=== PATIENT | male | born 1965 | race Caucasian/White ===

== ENCOUNTER 2018-04-12 06:14 | Emergency (ER) | payer BC ==
[~2018-04-12] VITALS: Ht 170.2 cm; Wt 83.9 kg
[2018-04-12 06:20] VITALS: BP 153/70
--- NOTE | 2018-04-12 06:32 | PHYS DOC ---
Past History Past Medical History: No Pertinent History Past Surgical History: No Surgical History Additional Smoking Information: 1 PPD Alcohol Use: None Drug Use: None Adult General Chief Complaint Chief Complaint: DENTAL PROBLEM HPI HPI Gen.: Presenting with pain in his right upper tooth with swelling of the face and mild erythema of the face. This started today. His pain is a throbbing moderate nonradiating intermittent pain without alleviating factors. He was seen by a dentist locally recently and has another appointment within the next week. Review of systems is negative for chest pain fevers chills vision changes pain with movement of the eyes. All other review of systems is negative unless otherwise noted in history of present illness. ED course: 52-year-old gentleman presenting the emergency department today with preseptal cellulitis from an odontogenic source likely. Vitals are within normal limits. We will initiate oral clindamycin to follow up with dentistry tomorrow and his primary care physician within one to 2 days.The patient has been examined and was not found to have an emergency medical condition. The patient was then discharged home in stable condition to follow up with their primary care physician over the next 1-2 days. They were to return if their symptoms worsened or if they were concerned for any reason. They were also instructed to return to the emergency department if they were unable to get the recommended and appropriate follow-up. [id number] discharge instructions and return precautions were given. Patient's questions were answered to their satisfaction. Patient is comfortable with plan. Review of Systems Review of Systems SEE ABOVE. Allergies Allergies Allergies Coded Allergies Type Severity Reaction Last Updated Verified Penicillins Allergy Severe 04/12/18 Yes Physical Exam Physical Exam SEE ABOVE Constitutional: Well developed, well nourished, no acute distress, non-toxic appearance. [] HENT: Normocephalic, atraumatic, bilateral external ears normal, oropharynx moist, no oral exudates, nose normal. Patient has 4 anterior teeth incisors which have poor dentition and obvious caries on the top. No periapical abscess present. The patient has mild erythema of the right cheek with swelling of the lower right eyelid. Eyes: PERRLA, EOMI, conjunctiva normal, no discharge. No pain with movement of the eyes. Neck: Normal range of motion, no tenderness, supple, no stridor. [] Cardiovascular:Heart rate regular rhythm, no murmur [] Lungs & Thorax: Bilateral breath sounds clear to auscultation [] Abdomen: Bowel sounds normal, soft, no tenderness, no masses, no pulsatile masses. [] Skin: Warm, dry, no erythema, no rash. [] Back: No tenderness, no CVA tenderness. [] Extremities: No tenderness, no cyanosis, no clubbing, ROM intact, no edema. [] Neurologic: Alert and oriented X 3, normal motor function, normal sensory function, no focal deficits noted. [] Psychologic: Affect normal, judgement normal, mood normal. [] Current Patient Data Vital Signs Vital Signs Date Time Temp Pulse Resp B/P (MAP) Pulse Ox O2 Delivery O2 Flow Rate FiO2 04/12/18 06:20 98.0 95 18 97 Room Air EKG EKG [] Radiology/Procedures Radiology/Procedures [] Course & Med Decision Making Course & Med Decision Making Pertinent Labs and Imaging studies reviewed. (See chart for details) [] Dragon Disclaimer Dragon Disclaimer This electronic medical record was generated, in whole or in part, using a voice recognition dictation system. Departure Departure: Impression: Primary Impression: Facial cellulitis Additional Impression: Pain, dental Disposition: HOME, SELF-CARE Condition: STABLE Referrals: ENA GRANT (PCP) Patient Instructions: Cellulitis Scripts Clindamycin Hcl (CLINDAMYCIN HCL) 300 Mg Capsule 1 CAP PO TID for dental pain, #21 CAP 0 Refills Prov: MURIEL OLIVAREZ MD 04/12/18 Problem Qualifiers MURIEL OLIVAREZ MD Apr 12, 2018 06:32
[2018-04-12] MEDS ORDERED: CLIN300C8 PO (06:38)
== END 2018-04-12 06:44 | disposition home or self-care (01) ==
LOC: ER 06:14
DX: L03.211 Cellulitis of face (principal); K08.89 Other specified disorders of teeth and supporting structures; F17.200 Nicotine dependence, unspecified, uncomplicated; Z88.0 Allergy status to penicillin
CPT/HCPCS: 99283